=== PATIENT | male | born 1965 | race Caucasian/White ===

== ENCOUNTER → 2017-06-09 | Outpatient (CLI) | payer OTHER ==
--- NOTE | 2017-06-09 21:29 | MR ---
EXAMINATION TYPE: MR tib fib RT wo con DATE OF EXAM: 06/09/2017 COMPARISON: NONE HISTORY: Pain Lower Right Leg while Running for 3 months Standard multiplanar, multisequence MRI departmental protocol Multiplanar, multisequence images of the right tibia and fibula were acquired. Diffusion weighted marisela ging was performed. FINDINGS: The musculature of both lower legs appears unremarkable. Bone marrow signal is maintained. There is no evidence of microtrabecular infraction or microtrabecul ar fracture. There is no periosteal reaction identified. I do not see evidence of a stress fracture. IMPRESSION: NORMAL MRI OF THE TIBIA AND FIBULA. A NUCLEAR MEDICINE BONE SCAN COULD BE PERFORMED TO HELP EXCLUDE A STRESS INJURY.
== END | disposition home or self-care (01) ==
LOC: RADMRIMAIN 19:46
PROVIDERS: ATTEND Family Medicine
DX: M79.604 Pain in right leg (principal)

== ENCOUNTER → 2019-01-17 | Outpatient (CLI) | payer OTHER ==
--- NOTE | 2019-01-17 17:27 | MR ---
EXAMINATION TYPE: MR shoulder RT wo con DATE OF EXAM: 01/17/2019 COMPARISON: None HISTORY: Right shoulder pain TECHNIQUE: Multiplanar, multisequence imaging of the right shoulder is performed without contrast. FINDINGS: Rotator Cuff: There is some fluid at the insertion site of the supraspinatus tendon. No tendon or mus oma retraction is evident. Muscle signal is normal. A small perforation should be considered. This in sertion site. Small amount of fluid is adjacent to the subscapularis tendon and supraspinatus tendon within the sub acromial bursa extending towards the subdeltoid bursa. Tendinosis of these tendons should be consider ed. Acromioclavicular Joint: Hypertrophy including some downward spurring which can contribute to impinge ment syndrome. Glenohumeral Joint: No subluxation or articular cartilage changes are evident. Labrum: The labrum appears grossly intact given limitation of non-arthrogram study. Biceps Tendon: The long head of biceps is in normal location within bicipital groove. Slight increase d amount of fluid is present which could indicate some mild tendinosis. Bone marrow signal: No focal abnormal marrow signal is appreciated. Other: No additional significant abnormality is appreciated. IMPRESSION: 1. Findings suggestive for tendinosis of the supraspinatus tendon and subscapularis tendons and to a lesser degree the long head of the biceps tendon. 2. Small perforation at the insertion site of the supraspinatus tendon should be considered.
== END | disposition home or self-care (01) ==
LOC: RADMRIMAIN 13:47
PROVIDERS: ATTEND Orthopaedic Surgery
DX: M75.101 Unspecified rotator cuff tear or rupture of right shoulder, not specified as traumatic (principal)

== ENCOUNTER → 2023-10-18 | Outpatient (CLI) | payer OTHER ==
[2023-10-18 16:37] VITALS: BP 144/77; PULSE 58; RESP 16; TEMP 97.9
--- NOTE | 2023-10-18 16:53 | P.SLEEP ---
History of Present Illness H&P Date: 10/18/23 This is a 58-year-old male patient, , with a diagnosis of obstructive sleep apnea, who is coming in to establish care at the sleep center at [facility]. The patient is was originally diagnosed having obstructive sleep apnea back in 2021. At that time, the patient was having symptoms of loud snoring, sleep fragmentation, excessive hypersomnia sleepiness during the day. This was affecting his functionality as the patient was fatigued and tired and sleepy at all times. Based on that, the patient underwent a screening for sonography that was done through the [facility] in [place] and the patient underwent a sleep study on 03/18/2022. The patient had a total sleep efficiency of 90%, latency to sleep onset was 6.5 minutes. The patient had adequate sleep architecture. The patient had a total of 3 obstructive apneas, 1 central apnea and a total of 184 obstructive hypopneas resulting into an AHI of 28.1 consistent with moderately severe disease. Following that, the patient was given a APAP machine and the patient is currently utilizing his APAP at a pressure of 5/15 cm of water and he is using the AirFit F20 medium size nasal mask. Treatment has been is very successful over the years and the patient has been benefiting from the treatment. I checked the machine and also checked the compliancy data that has been collected between 09/18/2023 and 10/17/2023 and based on the 30-day compliancy, the patient has been compliant and he has been utilizing his machine 100% of the time and is achieved more than 4 hours of usage 100% of the time. He has been averaging about 7 hours and 16 minutes of APAP use per night. His P95th percentile pressure is at 7.4. His AHI is down to 0.4. Leaks are in the order of 19 L/min. He has no specific complaints. No recent weight gain. Snoring has essentially recovered while being on CPAP therapy. He continues to have occasional heartburn for which she is taking medication. He also has history of exercise-induced asthma and allergic rhinitis. For now, he is going to bed around 10 PM [facility] He feels refreshed as long as he wears his CPAP. He has not taken his naps during the day. No recent weight gain. No history of any sleep paralysis or hallucinations or cataplexy. He tries to sleep on his side. No vivid dreams. No anxiety. No depression. No symptoms of PTSD. No history of obesity and the patient has been able to maintain his weight over the years. No history of any cardiovascular complications. No atrial fibrillation. No congestion heart failure. No stroke. Review of Systems Constitutional: Reports daytime sleepiness Eyes: denies as per HPI, denies blurred vision, denies bulging eye, denies decreased vision, denies diplopia, denies discharge, denies dry eye, denies irritation, denies itching, denies pain, denies photophobia, denies loss of peripheral vision, denies loss of vision, denies tunnel vision/blind spots Ears: deny: decreased hearing, ear discharge, earache, tinnitus Ears, nose, mouth and throat: Reports as per HPI Breasts: absent: as per HPI, gynecomastia Cardiovascular: Reports as per HPI Respiratory: Reports snoring Gastrointestinal: Reports as per HPI Genitourinary: Reports as per HPI Musculoskeletal: Reports as per HPI Musculoskeletal: absent: ankle pain, ankle stiffness, ankle swelling Integumentary: Reports as per HPI Neurological: Reports as per HPI Psychiatric: Reports as per HPI Endocrine: Reports as per HPI Hematologic/Lymphatic: Reports as per HPI Allergic/Immunologic: Reports as per HPI Past Medical History Past Medical History: Asthma, GERD/Reflux, Hearing Disorder / Deafness, Sleep Apnea/CPAP/BIPAP Additional Past Medical History / Comment(s): testing for Glac[place] History of Any Multi-Drug Resistant Organisms: None Reported Past Surgical History: Back Surgery, Orthopedic Surgery Past Anesthesia/Blood Transfusion Reactions: Previous Problems w/ Anesthesia Additional Past Anesthesia/Blood Transfusion Reaction / Comment(s): Nausea Past Psychological History: No Psychological Hx Reported Smoking Status: Never smoker Past Alcohol Use History: Occasional Past Drug Use History: None Reported - Past Family History Mother Family Medical History: Asthma, GERD/Reflux Father Family Medical History: Hypertension, Sleep Apnea/CPAP/BIPAP Additional Family Medical History / Comment(s): restless legs, snoring Medications and Allergies Home Medications Medication Instructions Recorded Confirmed Type Acetaminophen [Tylenol Extra 500 - 1,000 mg PO DIRECTED PRN 03/17/20 03/20/20 History Strength] Albuterol Inhaler [Ventolin Hfa 2 puff INHALATION RT-QID PRN 03/17/20 10/18/23 History Inhaler] Arginine [l-Arginine] 1,000 mg PO DAILY 03/17/20 03/20/20 History Cholecalciferol [Vitamin D3] 500 unit PO DAILY 03/17/20 10/18/23 History Fexofenadine HCl [Shaista Allergy] 180 mg PO DAILY 03/17/20 10/18/23 History Fish Oil/Dha/Epa [Fish Oil 1,200 1 each PO DAILY 03/17/20 10/18/23 History mg Fish Oil] Glucosam/Carson-Msm1/C/Arnaud/Bosw 2 each PO DAILY 03/17/20 10/18/23 History [Eghopehbgmg-Qjfuliijijf-ATP Tb] Ibuprofen [Motrin Ib] 200 - 800 mg PO Q8H PRN 03/17/20 03/20/20 History Melatonin 5 mg PO HS 03/17/20 10/18/23 History Montelukast [Singulair] 10 mg PO DAILY 03/17/20 10/18/23 History Multivitamins, Thera [Multivitamin 1 tab PO DAILY 03/17/20 10/18/23 History (formulary)] NIFEdipine [Procardia XL] 30 mg PO DAILY 03/17/20 10/18/23 History Omeprazole [PriLOSEC] 40 mg PO DAILY 03/17/20 03/20/20 History Pepcid (Unknown Dose) 1 tab PO DAILY 03/17/20 10/18/23 History Tamsulosin HCl [Flomax] 0.4 mg PO DAILY 03/17/20 10/18/23 History Testosterone [Androgel 1.62% Gel 1 applic TOPICAL DAILY 03/17/20 10/18/23 History Pump] buPROPion HCL [Wellbutrin XL] 150 mg PO DAILY 03/17/20 03/20/20 History HYDROcodone/APAP 7.5-325MG [Fowler 1 each PO Q6HR PRN #28 tab 03/20/20 Rx 7.5-325] Amphetamine [Dyanavel Xr] 15 mg PO DAILY 10/18/23 10/18/23 History Mirtazapine [Remeron] 15 mg PO HS PRN 10/18/23 10/18/23 History Naproxen [EC-Naprosyn] 500 mg BID 10/18/23 10/18/23 History Sildenafil Citrate 100 mg PO 10/18/23 History Allergies Allergy/AdvReac Type Severity Reaction Status Date / Time No Known Allergies Allergy Verified 03/20/20 06:22 Physical Exam Vitals: Vital Signs Temp Pulse Resp BP Pulse Ox 10/18/23 16:21 97.9 F 58 L 16 144/77 98 The patient's current weight is 193 pounds. His neck size is 15-3/4 of an inch. His body mass index is 26.1 The patient appeared well nourished and normally developed. Vital signs as documented. Head exam is unremarkable. No scleral icterus or corneal arcus noted. Neck is without jugular venous distension, thyromegaly, or carotid bruits. Carotid upstrokes are brisk bilaterally. Lungs are clear to auscultation and percussion. Cardiac exam reveals the PMI to be normally sized and situated. Rhythm is regular. First and second heart sounds normal. No murmurs, rubs or gallops. Abdominal exam reveals normal bowel sounds, no masses, no organomegaly and no aortic enlargement. Extremities are nonedematous and both femoral and pedal pulses are normal. Examination of the skin revealed no evidence of significant rashes, suspicious appearing nevi or other concerning lesions. Neurologically, the patient is awake and alert and the patient does not have any focal neurological deficit. Cranial nerves are essentially intact. Assessment and Plan Plan: Obstructive sleep apnea, moderately severe, diagnosed on 03/18/2022 and the patient has been successfully treated with a CPAP machine. The patient currently has a ResMed 11 APAP unit pressures of 5/15 cm of water and is utilizing AirFit N20 nasal mask and the treatment has been extremely successful. Compliance data was checked. His AHI while on treatment is down to 0.4. No need for any further adjustments. Chronic hypersomnia, improved with CPAP therapy without any residual symptoms Exercise-induced bronchial asthma Allergic rhinitis History of acid reflux Hypertension Raynaud's disease maintained on calcium channel blockers. Plan Will this patient was seen and examined. The previous polysomnography was reviewed. The CPAP machine was also checked and evaluated. Compliance data was checked. His treatment in general has been extremely successful and the patient is currently well treated and he does not have any significant residual hypersomnia or sleepiness related to his obstructive sleep apnea. He is not obese. No recent weight gain. No other significant comorbidities contributing to his obstructive sleep apnea. Based on my medical opinion, this 's current sleep apnea diagnosis is at least as likely as not developed as a result of service. No other viable explanations for development of his condition. He is not obese. No significant anatomic abnormalities contributing to development of sleep apnea. I will be glad to follow-up his case in the future. For the time being, his treatment is successful and the patient will continue CPAP therapy. Will keep the same mask interface. Maintain good sleep hygiene measures. See him back in a years time in follow-up, earlier if needed. Appropriate paperwork was filled in this regard. Sleep Note - Sleep Data ESS Total: 15 - Sleep Note Sleep Note: Temperature: 97.9 F Pulse Rate: 58 Respiratory Rate: 16 Blood Pressure: 144/77 SpO2: 98 Height: Weight: BMI: Neck Circumference: 15.7
== END ==
LOC: 3 N SLEEP 14:59
PROVIDERS: ATTEND Internal Medicine Critical Care Medicine
DX: G47.33 Obstructive sleep apnea (adult) (pediatric) (principal); G47.10 Hypersomnia, unspecified; J45.909 Unspecified asthma, uncomplicated; I10 Essential (primary) hypertension; I73.00 Raynaud's syndrome without gangrene; Z87.19 Personal history of other diseases of the digestive system; Z79.899 Other long term (current) drug therapy
CPT/HCPCS: 99211

== ENCOUNTER → 2024-05-23 | Outpatient (CLI) | payer OTHER ==
--- NOTE | 2024-05-23 22:26 | MR ---
EXAMINATION TYPE: MR knee RT wo con DATE OF EXAM: 05/23/2024 COMPARISON: Outside right knee x-ray May 15, 2024 HISTORY: Right knee pain x3-4 years after running injury TECHNIQUE: Multiplanar, multisequence images of the knee is performed without IV contrast. FINDINGS: MEDIAL MENISCUS: Linear and triangular shaped increased signal posterior horn does not extend to benjie cular surface. LATERAL MENISCUS: Anterior and posterior horns are intact without tear. CRUCIATE LIGAMENTS: The anterior and posterior cruciate ligaments are intact and unremarkable. COLLATERAL LIGAMENTS: The medial collateral ligament and lateral collateral ligament complex are inta ct and unremarkable. EXTENSOR MECHANISM: Visualized quadriceps and patellar tendons are intact. EFFUSION: No significant suprapatellar joint effusion. POPLITEAL CYST: No popliteal/luna cyst. TRICOMPARTMENT SPACES: Mild narrowing medial tibiofemoral and patellofemoral compartments. Mild spurr ing patellofemoral compartment. CARTILAGE: Tricompartmental articular cartilage is preserved. BONE MARROW SIGNAL: No focal abnormal marrow signal is appreciated. OTHER: Heterogeneous increased signal throughout the visualized portion of the semimembranosus muscle [id number] joint. IMPRESSION: 1. Mild degenerative changes are present as detailed above. 2. Suspect intrasubstance tear posterior horn medial meniscus, no full-thickness meniscal or ligament ous tear is seen. 3. Diffuse edema throughout the visualized portion of the semimembranous muscle may require further c linical workup. [facility], , 05/23/2024 10:23 PM
== END | disposition home or self-care (01) ==
LOC: RADMRIMAIN 19:06
PROVIDERS: ATTEND Orthopaedic Surgery
DX: M17.11 Unilateral primary osteoarthritis, right knee (principal)

== ENCOUNTER → 2024-06-11 | Outpatient (CLI) | payer OTHER ==
[2024-06-11 19:25] LABS: Basophils # (A) 0.07 X 10*3/uL (0.00-0.10); Basophils % (A) 1.3 %; Eosinophils # (A) 0.25 X 10*3/uL (0.04-0.35); Eosinophils % (A) 4.7 %; HCT 42.2 % (39.6-50.0); HGB 14.4 g/dL (13.0-17.0); Lymphocytes % (A) 16.9 %; MCH 32.7 pg (27.0-32.0); MCHC 34.1 g/dL (32.0-37.0); MCV 95.7 FL (80.0-97.0); Mean Platelet Volume 10.5 FL (9.5-12.2); Monocytes # (A) 0.56 X 10*3/uL (0.20-1.00); Monocytes % (A) 10.5 %; NRBC Per 100 WBC 0 X 10*3/uL (0.00-0.01); Neutrophils # (A) 3.52 X 10*3/uL (1.80-7.70); Neutrophils % (A) 66.2 %; Platelet Count 182 X 10*3/uL (140-440); RBC 4.41 X 10*6/uL (4.40-5.60); WBC 5.32 X 10*3/uL (4.50-10.00)
[2024-06-11 20:06] LABS: Anion Gap 8.7 mmol/L (4.00-12.00); Carbon Dioxide 29.3 mmol/L (21.6-31.8); Potassium 4.5 mmol/L (3.5-5.5)
== END | disposition home or self-care (01) ==
LOC: LABWHC1 15:02
PROVIDERS: ATTEND Orthopaedic Surgery
DX: Z01.818 Encounter for other preprocedural examination (principal); M23.91 Unspecified internal derangement of right knee; R94.31 Abnormal electrocardiogram [ECG] [EKG]
CPT/HCPCS: 36415; 80051; 85025; 93005

== ENCOUNTER 2024-06-28 14:42 | Day surgery (SDC) | payer OTHER ==
--- NOTE | 2024-06-28 02:49 | HP ---
HISTORY AND PHYSICAL DATE OF SURGERY: 06/28/2024. HISTORY OF PRESENT ILLNESS: Edward Back 59-year-old gentleman seen with progressive right knee pain. We discussed options regarding treatment. He elected to proceed with right knee arthroscopy. Consent obtained. PAST MEDICAL HISTORY: Hypertension, gastroesophageal reflux disease. PAST SURGICAL HISTORY: Knee arthroscopy, lumbar spine fusion. MEDICATIONS: His daily medications are going to be: 1. Albuterol inhaler. 2. Omeprazole. 3. Nifedipine. 4. Vitamins. ALLERGIES: None reported. SOCIAL HISTORY: Does not smoke cigarettes. PHYSICAL EVALUATION OF THE RIGHT KNEE: Range of motion is 0 to 130 degrees. Mild effusion. Tenderness along the medial joint line with positive medial Ashley's. Ligaments stable. Hip rotation without pain. Distal neurovascular exam intact. IMAGING STUDIES: Right knee radiographs revealed mild osteoarthritis as well as intra-articular effusion. MRI of the right knee revealed medial meniscal tear. IMPRESSION: 1. Internal derangement of right knee with medial meniscal tear. 2. Hypertension. 3. Asthma. PLAN: Right knee arthroscopy with partial medial meniscectomy and debridement. MMODL / IJN: [id number] /
[~2024-06-28 14:42] MED LIST: HYDROmorphone 0.5 MG/0.5 ML SYRINGE IVP PRN; LIDOCAINE 1% (10MG/ML) FOR IV START INTRADERMA PRN; droPERidol 5 MG/2 ML VIAL IVP ONE
[2024-06-28] MEDS: IV FLUID CONTINUATION 1,000 ML IV ONE (15:00)
[2024-06-28] MEDS: LACTATED RINGERS 1,000 ML IV SCH (15:19)
[2024-06-28 15:32] VITALS: TEMP 97.8
[2024-06-28] MEDS: DEXAMETHASONE SOD PHOSPHATE 4 MG/ML 1 ML VIAL IV ONE (15:36)
[2024-06-28] MEDS: ONDANSETRON 4 MG/2 ML VIAL IVP ONE (15:36)
[2024-06-28] MEDS ORDERED: LIDOCAINE 1% INJ 10MG/ML (20 ML MDV) ONE (15:39)
[2024-06-28] MEDS ORDERED: ePHEDrine 50 MG/ML 1 ML VIAL ONE (15:39)
[2024-06-28] MEDS ORDERED: SUCCINYLCHOLINE CHLORIDE 200 MG/10 ML VIAL IV ONE (15:39)
[2024-06-28] MEDS ORDERED: MIDAZOLAM 2 MG/2 ML VIAL ONE (15:39)
[2024-06-28] MEDS ORDERED: PROPOFOL 10 MG/ML 20 ML VIAL IV ONE (15:39)
[2024-06-28] MEDS ORDERED: GLYCOPYRROLATE 0.2 MG/ML 2 ML VIAL ONE (15:39)
[2024-06-28] MEDS ORDERED: KETOROLAC 15 MG/ML 1 ML VIAL ONE (15:39)
[2024-06-28] MEDS ORDERED: fentaNYL (PF) 50 MCG/ML 2 ML AMP ONE (15:39)
[2024-06-28] MEDS: BUPIVACAINE (PF) 0.25% 30 ML VIAL INTRAARTIC ONE (16:09)
--- NOTE | 2024-06-28 16:34 | P.OP ---
Date of Procedure: 06/28/24 Preoperative Diagnosis: Internal derangement right knee Postoperative Diagnosis: 1. Tear medial and lateral meniscus right knee 2. Reactive synovitis medial, lateral and suprapatellar compartments right knee 3. Grade II chondromalacia patella right knee Procedure(s) Performed: 1. Arthroscopic partial medial and lateral meniscectomy right knee 2. Arthroscopic partial synovectomy medial, lateral and suprapatellar compartments right knee 3. Arthroscopic chondroplasty patella right knee Anesthesia: MEHRANA, local Surgeon: Kenton Savage Estimated Blood Loss (ml): 6 Pathology: none sent Condition: stable Disposition: PACU Indications for Procedure: 59-year-old patient seen with progressive right knee pain. After treatment options were discussed with him, he elected to proceed with arthroscopy. Operative Findings: See description of procedure Description of Procedure: Patient was taken to the operative suite. Patient underwent a general anesthetic by the department of anesthesia. Patient was given preoperative antibiotics. The right lower extremity was placed in a well-padded arthroscopic leg dover. The right leg was prepped and draped in the normal sterile orthopedic fashion. A lateral parapatellar and suprapatellar incision was made. Trochars were inserted. Arthroscopy was initiated. Suprapatellar pouch revealed diffuse thick reactive synovitis. The patellofemoral joint appeared to articulate congruently. There was grade II chondromalacia of the patella with some osteochondral tears present. The scope was guided into the medial gutter. No loose bodies or plica were identified. The scope was then guided into the medial compartment. A medial parapatellar incision was made. Trocar inserted followed by probe. There was a radial tear involving the posterior horn medial meniscus. There was mild grade I chondromalacia of the medial tibial plateau. There was thick reactive synovitis anteriorly. I performed a partial medial meniscectomy getting down to stable meniscal tissue. I performed a partial synovectomy decompressing the reactive synovitis. The residual meniscus was probed and was found to be stable. There was good decompression of the synovitis. Scope and probe were then guided into the intercondylar notch. Cruciates were identified, probed and found to be stable. The scope and probe were then guided into lateral compartment. There was a radial tear mid body lateral meniscus. There was no chondromalacia involving the lateral compartment. There was some thick reactive synovitis anteriorly. I performed a partial lateral meniscectomy getting down to stable meniscal tissue. I performed a partial synovectomy decompressing the reactive synovitis. The residual meniscus was probed and was found to be stable. The residual osteochondral surface appeared stable. There was good decompression of the synovitis. The scope was in guided back into the suprapatellar compartment. I introduced a motorized shaver into the suprapatellar compartment. I performed a chondroplasty of the patella getting down to stable osteochondral tissue. I performed a partial synovectomy decompressing the reactive synovitis. The residual osteochondral surface appeared stable. There was good decompression of the synovitis. I now took 1 more look around the entire knee, no residual debris. Instruments were now removed from the joint. The joint was infiltrated with .25% Marcaine. Steri-Strips were applied to the portal sites. Sterile dressings were applied. The patient was placed into a OSEI hose. No tourniquet was utilized. The patient was awakened, transferred to a bed and taken to recovery stable satisfactory condition.
[2024-06-28 17:44] VITALS: RESP 14
[2024-06-28 17:53] VITALS: BP 130/75; PULSE 56
== END 2024-06-28 18:23 | disposition home or self-care (01) ==
LOC: OR 14:42
PROVIDERS: ATTEND Orthopaedic Surgery
DX: S83.241A Other tear of medial meniscus, current injury, right knee, initial encounter (principal); S83.281A Other tear of lateral meniscus, current injury, right knee, initial encounter; M94.261 Chondromalacia, right knee; M65.861 Other synovitis and tenosynovitis, right lower leg; I10 Essential (primary) hypertension; G47.33 Obstructive sleep apnea (adult) (pediatric); I73.00 Raynaud's syndrome without gangrene; J45.909 Unspecified asthma, uncomplicated; K21.9 Gastro-esophageal reflux disease without esophagitis; Z79.899 Other long term (current) drug therapy; Z98.1 Arthrodesis status
CPT/HCPCS: 29880; 29876; J1100; J0690; J2405; J0665